=== PATIENT | female | born 1940 | race Caucasian/White ===

== ENCOUNTER 2018-07-25 14:53 | Emergency (ER) | payer OTHER ==
--- NOTE | 2018-07-25 15:32 | EDPHY ---
H & P Stated Complaint: fall today, right hand, right knee, left rib pain Time Seen by Provider: 07/25/18 15:10 HPI/ROS: Chief Complaint: Fall, hand, knee pain HPI: 77-year-old woman had a mechanical trip and fall this afternoon. She landed on her right outstretched hand in her right knee. She has pain at the base of her right little finger. She also sustained abrasion of her knee. She has been able to ambulate without any difficulty. She did not hit her head. No loss of conscious. No numbness or weakness. ROS: 10 systems were reviewed and were negative except those elements noted in the HPI. PMH: Hypothyroidism Social History: No smoking, no alcohol, no recreational drug use Family History: non-contributory Physical Exam: Gen: Awake, Alert, No Distress HEENT: Nose: no rhinorrhea Eyes: PERRLA, EOMI Mouth: Moist mucosa Neck: Supple, no JVD Chest: nontender, lungs clear to auscultation Heart: S1, S2 normal, no murmur Abd: Soft, non-tender, no guarding Back: no CVA tenderness, no midline tenderness Ext: no edema, right hand: Patient has deformity with ecchymosis at the base of her right little finger. She is able to flex secondary to pain. Sensations intact distally. He has 2+ radial ulnar pulses. Sensation intact in the radial , median, and ulnar nerve distribution. Right knee: Patient has abrasion over her right patella. There is no deformity. She has full flexion extension strength. He is able to weight bear without difficulty. Skin: no rash Neuro: CN II-XII intact, Sensation grossly intact, Strength 5/5 in bilateral upper and lower extremities - Personal History Current Tetanus/Diphtheria Vaccine: Yes Current Tetanus Diphtheria and Acellular Pertussis (TDAP): Yes Tetanus Vaccine Date: < 10 years - Medical/Surgical History Hx Asthma: No Hx Chronic Respiratory Disease: No Hx Diabetes: No Hx Cardiac Disease: No Hx Renal Disease: No Hx Cirrhosis: No Hx Alcoholism: No Hx HIV/AIDS: No Hx Splenectomy or Spleen Trauma: No Other PMH: hypothyroid - Social History Smoking Status: Never smoked Constitutional: Initial Vital Signs Temperature (C) 36.8 C 07/25/18 15:00 Heart Rate 79 07/25/18 15:00 Respiratory Rate 18 07/25/18 15:00 Blood Pressure 187/81 H 07/25/18 15:00 O2 Sat (%) 96 07/25/18 15:00 O2 Delivery Mode Room Air Allergies/Adverse Reactions: codeine Allergy (Verified 07/25/18 15:00) Home Medications: Medication Instructions Recorded Levothyroxine 07/25/18 Medical Decision Making - Diagnostics Imaging Results: Imaging Impressions Hand X-Ray 07/25/18 15:17 Impression: 1. Acute comminuted and minimally angulated proximal phalanx fifth finger fracture. 2. HADD arthropathy. ED Course/Re-evaluation: Patient is a proximal right 5th phalanx fracture. Patient has been placed in a modified ulnar gutter splint. I have inspected the splint. She is comfortable with normal perfusion and good immobility. Patient is visiting from out of town. I will give the name of a hand surgeon here but realistically she can probably follow up with the hand surgeon in [place] when she returns next week. She has been given return precautions. Departure - Departure Disposition: Home, Routine, Self-Care Clinical Impression: Finger fracture Condition: Good Instructions: Finger Fracture (ED), Splint Care (ED) Additional Instructions: Follow up with hand surgeon in about a week for recheck. Return to the emergency department for increasing pain, swelling, numbness, discoloration, or any other concerns. Referrals: VERITO WOLF MD [Other] - As per Instructions Enrrique Falcon MD [Medical Doctor] - As per Instructions
[2018-07-25 16:53] VITALS: BP 142/80
== END 2018-07-25 16:50 | disposition home or self-care (01) ==
DX: S62.616A Displaced fracture of proximal phalanx of right little finger, initial encounter for closed fracture (principal); S80.211A Abrasion, right knee, initial encounter; R07.81 Pleurodynia; W01.0XXA Fall on same level from slipping, tripping and stumbling without subsequent striking against object, initial encounter
CPT/HCPCS: 73130; 99283; L3925